=== PATIENT | female | born 1935 | race African-American/Black ===

== ENCOUNTER 2017-01-21 00:27 | Inpatient (IN) | payer MEDICARE, OTHER ==
[2017-01-21] VITALS (8 sets, daily range): BP systolic 117–178; BP diastolic 68–83
[~2017-01-21] VITALS: Ht 167.6 cm; Wt 79.8 kg
[~2017-01-21 00:27] MED LIST: AMIN30LI27 PO; ATOR20TA PO; ENAL10TA39 PO; GLUC1VIA IM; Hydralazine Hcl PO; INSU100V26 IJ; OMEP20CA10 PO; PANT40TA2 PO; WARF2TAB57 PO
[2017-01-21] MEDS ORDERED: IV NS 0.9% 500 ML BAG IV ONE (00:30)
[2017-01-21] MEDS ORDERED: LEVOFLOXACIN 750 MG /D5W 150ML 150 ML IV ONE ×2 (00:30→00:33)
--- NOTE | 2017-01-21 00:30 | NUR ---
STARTED A SALINE LOCK ON THE LAC G16, BLOOD DRAWN AND SEN TO LAB.
--- NOTE | 2017-01-21 00:32 | NUR ---
CALLED [facility] AND REQUESTED THAT THE NURSE FAX OVER THE PATIENT'S DNR PAPER WORK
[2017-01-21] MEDS ORDERED: IV NS 0.9% 500 ML IV ONE (00:33)
[2017-01-21] MEDS ORDERED: IV SET PRIMARY 1 EA INFUS.SET MC ONE (00:33)
[2017-01-21] MEDS ORDERED: IV SET PRIMARY PUMP SET 1 EA INFUS.SET MC ONE ×2 (00:33→06:14)
--- NOTE | 2017-01-21 00:35 | NUR ---
TO BED 5 A 81 YO FEMALE PT BIBA, PER EMS PT WAS SOB AND DIFFUCLTY BREATHING X 1 HOUR. UPON ARRIVAL TO ER, PATIENT WAS ON NONREBREATHER MASK AT 15LPM SATTING AT 94%, TACHYPNEIC, RONCHI ON BOTH SIDES OF LUNGS. AFIB CONTROLLED ON THE MONITOR. OBTUNDED, NONVERBAL, WITHRDRAWS FROM PAIN. KEPT HOB ELEVATED. DR ALVARADO AT BEDSIDE. RT AT BEDSIDE TO SUCTION.
--- NOTE | 2017-01-21 00:36 | NUR ---
PLACED PATIENT ON BIPAP BY RT SETTINGS 15/5 RATE 12 FIO2 40%. LONI WELL, SATTING AT 99% AT THIS TIME.
[2017-01-21 00:53] LABS: BASOPHILS % (AUTO) 0.2 % (0.0-2.0); HEMATOCRIT 43 % (33-45); LYMPHOCYTES # (AUTO) 0.5 /CMM (0.8-4.8); LYMPHOCYTES % (AUTO) 4.8 % (20.0-44.0); MEAN CORPUSCULAR HEMOGLOBIN 31 PG (26.0-33.0); MEAN CORPUSCULAR HGB CONC 32 g/dl (31.0-36.0); MEAN CORPUSCULAR VOLUME 95 fL (82-100); MONOCYTES % (AUTO) 9.5 % (2.0-12.0); NEUTROPHILS # (AUTO) 9.1 /CMM (1.8-8.9); NEUTROPHILS % (AUTO) 85.5 % (43.0-81.0); PLATELET COUNT (AUTO) 176 /CMM (150-450); RDW COEFFICIENT OF VARIATION 15.3 (11.5-15.0); RED BLOOD CELL COUNT(AUTO) 4.57 MIL/uL (4.0-5.2); WHITE BLOOD COUNT (AUTO) 10.6 K/uL (4.3-11.0)
[2017-01-21] MEDS ORDERED: RIVA10TA PO (01:00)
[2017-01-21] MEDS ORDERED: ATOR10TA PO (01:00)
[2017-01-21] MEDS ORDERED: NA P133E RC (01:00)
[2017-01-21] MEDS ORDERED: HYDR-4076 PO (01:00)
[2017-01-21] MEDS ORDERED: ACET-868 PO (01:00)
[2017-01-21] MEDS ORDERED: MAGN400O6 PO (01:00)
[2017-01-21] MEDS ORDERED: BISA-79 PR (01:00)
[2017-01-21] MEDS ORDERED: ENAL20TA70 PO (01:00)
[2017-01-21] MEDS ORDERED: POTA10TA15 PO (01:00)
[2017-01-21 01:04] LABS: CALCIUM, SERUM 8.7 mg/dL (8.5-10.1); CARBON DIOXIDE 25 mmol/L (21-32); CHLORIDE 104 mmol/L (98-107); CREATININE 1.8 mg/dL (0.6-1.3); GLUCOSE 235 mg/dL (74-106); SODIUM SERUM 141 mmol/L (136-145); UREA NITROGEN, BLOOD 21 mg/dL (7-18)
[2017-01-21 01:08] LABS: INR 1.02 (0.87-1.13); PROTHROMBIN TIME 10.9 SECS (9.5-12.7)
[2017-01-21 01:11] LABS: TROPONIN I 0.252 ng/mL (0.00-0.056)
[2017-01-21 01:17] LABS: ALANINE AMINOTRANSFERASE 24 U/L (12-78); ALBUMIN 3.7 g/dL (3.4-5.0); ALKALINE PHOSPHATASE 108 U/L (46-116); ASPARTATE AMINOTRANSFERASE 16 U/L (15-37); B-TYPE NATRIURETIC PEPTIDE 1865 PG/ML (0-125); BILIRUBIN,DIRECT 0.1 mg/dL (0.0-0.2); BILIRUBIN,TOTAL 0.3 mg/dL (0.2-1.0); TOTAL PROTEIN, SERUM 8.8 g/dL (6.4-8.2)
--- NOTE | 2017-01-21 01:20 | NUR ---
CRITICAL LACTIC 4.9
[2017-01-21 01:44] LABS: APPEARANCE,URINE SL CLOUDY (CLEAR); BILIRUBIN,URINE NEGATIVE (NEGATIVE); BLOOD, URINE NEGATIVE Ery/uL (NEGATIVE); COLOR,URINE YELLOW (YELLOW); KETONES,URINE NEGATIVE (NEGATIVE); LEUKOCYTE ESTERASE ,URINE NEGATIVE (NEGATIVE); NITRITE, URINE NEGATIVE (NEGATIVE); PROTEIN,URINE NEGATIVE (NEGATIVE); UGLUCOSE NEGATIVE (NEGATIVE); UROBILINOGEN,URINE 0.2 EU/dL (0.2)
[2017-01-21 01:57] LABS: BACTERIA,URINE None seen /HPF (None Seen); RBC,URINE NONE SEEN /HPF (0-2); SQUAMOUS EPITHELIAL CELL,UR Rare /HPF (None Seen); WBC,URINE 0-2 /HPF (0-3)
[2017-01-21 01:58] LABS: URINE AMORPHOUS URATE Moderate /HPF (None Seen)
--- NOTE | 2017-01-21 02:52 | NUR ---
director of special services at bedside to draw repeat lactic acid levels.
--- NOTE | 2017-01-21 03:22 | NUR ---
Report given to Lulu COX for SHERYL admission and jaqui.
[2017-01-21] MEDS ORDERED: ASPIRIN 300 MG/SUPP.RECT RC ONE (03:42)
[2017-01-21] MEDS ORDERED: FUROSEMIDE 40 MG/4 ML VIAL ONE (03:42)
[2017-01-21 03:51] LABS: ABG BASE EXCESS -8.5 mmol/L; ABG OXYGEN SATURATION 39.2 % (92.0-98.5); ABG PCO2 81.2 mmHg (35.0-45.0); ABG PH 7.074 (7.350-7.450); ABG PO2 27.3 mmHg (75.0-100.0); COHb 1.1 % (0.5-1.5); O2Hb 38.4 % (94.0-97.0)
[2017-01-21] MEDS ORDERED: FUROSEMIDE 40 MG/4 ML VIAL IV SCH (04:00)
[2017-01-21] MEDS ORDERED: ASPIRIN 300 MG/SUPP.RECT RC SCH (04:00)
--- NOTE | 2017-01-21 04:20 | NUR ---
MADE PANEL CALL; LEANNA BARBA TO BE PAGED.
--- NOTE | 2017-01-21 04:40 | NUR ---
SHERYL RN INITIAL NOTE RECEIVED PT FROM ER VIA GURNEY. NO ACUTE DISTRESS NOTED. PT TRANSFERRED TO BED SAFELY. ON BIPAP 22-5 R-12 FIO2 40% AND SATING WELL. PT NON VERBAL, AWAKE AND OPEN EYES. IV SITE LAC #16 PATENT AND FLUSHING WELL. LUNG AND HEART SOUNDS AUSCULTATED. SKIN ASSESSMENT DONE. TELE- A-FIB CONTROLLED 90'S. WILL CONTINUE TO MONITOR.
--- NOTE | 2017-01-21 04:42 | NUR ---
Transported patient to [facility] room 116-2 via als protocol, no incident noted. Nurse Lulu at bedside.
[2017-01-21] MEDS ORDERED: IV NS 0.9% 1,000 ML IV PRN (04:43)
[2017-01-21] MEDS ORDERED: ONDANSETRON HCL/PF 4 MG/2 ML VIAL IVP PRN (05:00)
[2017-01-21] MEDS ORDERED: IPRATROPIUM NEB FS 0.5 MG/2.5 ML AMPUL.NEB NEB PRN (05:00)
[2017-01-21] MEDS ORDERED: ZOLPIDEM TARTRATE 5 MG TABLET PO PRN (05:00)
[2017-01-21] MEDS ORDERED: MORPHINE SULFATE INJ 2 MG/ML DISP.SYRIN IV PRN (05:00)
[2017-01-21] MEDS ORDERED: MAGNESIUM HYDROXIDE 30 ML UDC PO PRN (05:00)
[2017-01-21] MEDS ORDERED: ALBUTEROL FS 2.5 MG/0.5 ML VIAL.NEB NEB PRN (05:00)
[2017-01-21] MEDS ORDERED: HYDROCODONE/APAP 5/325MG 1 EACH TABLET PO PRN (05:00)
[2017-01-21] MEDS ORDERED: NA PHOS,M-B/NA PHOS,DI-BA 1 EA ENEMA RC PRN (05:00)
[2017-01-21] MEDS ORDERED: MAG HYDROX/AL HYDROX/SIMETH 30 ML UDC PO PRN (05:00)
[2017-01-21] MEDS ORDERED: ACETAMINOPHEN 325 MG TABLET PO PRN (05:00)
[2017-01-21] MEDS ORDERED: ENOXAPARIN SODIUM 40 MG/0.4 ML DISP.SYRIN SQ SCH (05:00)
[2017-01-21] MEDS: hydrALAZINE HCL 25 MG TABLET PO SCH ×2 (05:00→08:44)
[2017-01-21] MEDS ORDERED: Z GUARD REMEDY 2 OZ OINT TP PRN (05:00)
[2017-01-21] MEDS ORDERED: BISACODYL (5 MG) 5 MG TABLET.DR PO PRN (05:00)
[2017-01-21] MEDS ORDERED: LEVOFLOXACIN 500 MG /D5W 100ML 500 MG in PREMIX 1 EA IV SCH (05:00)
[2017-01-21] MEDS ORDERED: IV NS 0.9% 1,000 ML ONE (06:14)
[2017-01-21] MEDS ORDERED: hydrALAZINE HCL 25 MG TABLET ONE (06:18)
[2017-01-21] MEDS ORDERED: ENOXAPARIN SODIUM 40 MG/0.4 ML DISP.SYRIN SQ ONE (06:18)
[2017-01-21] MEDS ORDERED: LEVOFLOXACIN 500 MG /D5W 100ML 500 MG in PREMIX 1 EA IV ONE (06:28)
[2017-01-21 07:02] LABS: BASOPHILS % (AUTO) 0.1 % (0.0-2.0); EOSINOPHILS # (AUTO) 0.1 /CMM (0.0-0.7); EOSINOPHILS % (AUTO) 0.5 % (0.0-6.0); HEMATOCRIT 42 % (33-45); HEMOGLOBIN 13.8 g/dL (11.5-14.8); LYMPHOCYTES # (AUTO) 0.5 /CMM (0.8-4.8); LYMPHOCYTES % (AUTO) 4.5 % (20.0-44.0); MEAN CORPUSCULAR HEMOGLOBIN 31 PG (26.0-33.0); MEAN CORPUSCULAR HGB CONC 33 g/dl (31.0-36.0); MEAN CORPUSCULAR VOLUME 95 fL (82-100); MONOCYTES # (AUTO) 0.2 /CMM (0.1-1.30); MONOCYTES % (AUTO) 2.2 % (2.0-12.0); NEUTROPHILS % (AUTO) 92.7 % (43.0-81.0); PLATELET COUNT (AUTO) 150 /CMM (150-450); RDW COEFFICIENT OF VARIATION 14.9 (11.5-15.0); WHITE BLOOD COUNT (AUTO) 10.8 K/uL (4.3-11.0)
--- NOTE | 2017-01-21 07:37 | NUR ---
SHERYL RN CLOSING NOTE PT REMAINED STABLE DURING SHIFT. NO ACUTE DISTRESS NOTED. SATING WELL. BIPAP SETTINGS WELL TOLERATED. PT HAS LEFT SOFT WRIST RESTRAINT. CIRCULATION CHECKED AND NO DISCOLORATION NOTED. IV SITE INTACT. IV FLUIDS INITIATED AND TOLERATING WELL. BED IN LOWEST POSITION. DIETARY EVALUATION ORDERED. ALL SAFETY MEASURES IN PLACE. WILL ENDORSE TO NEXT SHIFT FOR KATIE.
[2017-01-21] MEDS: ALBUTEROL FS 2.5 MG/0.5 ML VIAL.NEB NEB SCH ×3 (07:55→20:22)
[2017-01-21] MEDS: IPRATROPIUM NEB FS 0.5 MG/2.5 ML AMPUL.NEB NEB SCH ×3 (07:55→20:22)
--- NOTE | 2017-01-21 08:00 | NUR ---
viticulture teacher pt in bed on bipap settings noted, awake does not follow right sided contraction, pt sat 10% vs stable, pt unable to couch provided oropharyngeal suctioning, pt comfortable in bed fall precautions taken turn and reposition in bed, release restraints provided prom checked for circulation, will continue to monitor.
[2017-01-21] MEDS: RIVAROXABAN 10 MG TABLET PO SCH (08:44)
[2017-01-21 08:53] LABS: CALCIUM, SERUM 8.5 mg/dL (8.5-10.1); CARBON DIOXIDE 22 mmol/L (21-32); CHLORIDE 106 mmol/L (98-107); CREATININE 1.7 mg/dL (0.6-1.3); GLUCOSE 198 mg/dL (74-106); POTASSIUM 4.4 mmol/L (3.5-5.1); SODIUM SERUM 141 mmol/L (136-145); UREA NITROGEN, BLOOD 26 mg/dL (7-18)
[2017-01-21] MEDS ORDERED: POTASSIUM CHLORIDE 10 MEQ TABLET.SA PO SCH (09:00)
[2017-01-21] MEDS ORDERED: ENALAPRIL MALEATE (10 MG) 10 MG TABLET PO SCH (09:30)
[2017-01-21] MEDS: methylPREDNISolone SOD SUCC 125 MG/2ML VIAL IV SCH ×2 (10:41→16:57)
[2017-01-21] MEDS: PANTOPRAZOLE 40 MG VIAL IV SCH (10:41)
[2017-01-21] MEDS: IV NS 0.9% 1,000 ML IV PRN ×2 (15:19→22:19)
[2017-01-21] MEDS ORDERED: ATORVASTATIN 10 MG TABLET PO SCH (18:00)
--- NOTE | 2017-01-21 19:20 | NUR ---
RN INITIAL NOTES RECEIVED PATIENT ON BIPAP, TOLERATING SETTINGS WELL WITH 100% SATURATION. PATIENT IS AWAKE, NONVERBAL, POOR EYE TRACKING NOTED. CONTROLLED AFIB AT 82. PATIENT WITH L AC G16, FLUSHED AND PATENT, INTACT, IVF OF NS AT 250CC/HR INFUSING. F/C INTACT AND DRAINING WELL WITH CLEAR YELLOW URINE. L WRIST SOFT RESTRAINT IN PLACE, NOTED PATIENT WITH GOOD ARM STRENGTH AND TENDS TO LEAN SELF ON LEFT SIDE. REPOSITIONED PATIENT FOR SAFETY AND COMFORT. BED ALARM IN PLACE. NEEDS ANTICIPATED AND MET. WILL CLOSELY MONITOR.
--- NOTE | 2017-01-21 22:30 | NUR ---
RN NOTES PATIENT PROVIDED WITH PM CARE. REPOSITIONED FOR SAFETY AND COMFORT. L WRIST SOFT RESTRAINTS IN PLACE, INTERMITTENTLY RELEASED AND CHECKED AND VERIFIED SKIN INTEGRITY AND CIRCULATION. NEEDS ANTICIPATED AND MET. COMFORT ENSURED.
[2017-01-22] VITALS: BP 152/84
[2017-01-22] MEDS: ALBUTEROL FS 2.5 MG/0.5 ML VIAL.NEB NEB SCH ×4 (01:48→19:57)
[2017-01-22] MEDS: IPRATROPIUM NEB FS 0.5 MG/2.5 ML AMPUL.NEB NEB SCH ×4 (01:49→19:57)
[2017-01-22 04:00] VITALS: BP 121/57
--- NOTE | 2017-01-22 04:48 | NUR ---
RN NOTES PATIENT SLEEPING COMFORTABLY IN BED, NO DISTRESS. TOLERATING BIPAP SETTINGS. 100% O2 SATURATION. AIRWAY SUCTIONED NEEDED, COORDINATED WITH RT FOR ASSISTANCE. AM CARE RENDERED. PATIENT KEPT CLEAN AND DRY. GOOD PERICARE RENDERED. TURNED AND REPOSITIONED. L WRIST RESTRAINTS IN PLACE, CIRCULATION AND SKIN INTEGRITY ENSURED.
[2017-01-22] MEDS ORDERED: IV SET PRIMARY PUMP SET 1 EA INFUS.SET MC ONE (05:26)
[2017-01-22] MEDS: LEVOFLOXACIN 250 MG /D5W 50 ML 250 MG in PREMIX 1 EA IV SCH (05:38)
--- NOTE | 2017-01-22 06:39 | NUR ---
RN CLOSING NOTES PATIENT WITH NO ACUTE CHANGE IN CONDITION OBSERVED OVERNIGHT. REMAINS ON BIPAP, TOLERATING WELL. AIRWAY SUCTIONED. COMPLETED IVF CHALLENGE ORDERED. L AC G16 REMAINS INTACT AND PATENT. NEEDS ANTICIPATED AND MET. SAFETY AND COMFORT ENSURED. BED IN LOW AND LOCKED POSITION. L SOFT WRIST RESTRAINTS IN PLACE, CIRCULATION AND SKIN INTEGRITY ENSURED. WILL ENDORSE ACCORDINGLY FOR CONTINUITY OF CARE.
--- NOTE | 2017-01-22 07:42 | NUR ---
PT ABLE TO GRAB WITH THE LEFT ARM AND PULL OFF THE BIPAP. DEEP SUCTIONED THE PATIENT WITH RT AND PLACED ON NC. SHE SATS AT 100%.
[2017-01-22 07:45] LABS: ALANINE AMINOTRANSFERASE 40 U/L (12-78); ALBUMIN 2.9 g/dL (3.4-5.0); ALKALINE PHOSPHATASE 81 U/L (46-116); ASPARTATE AMINOTRANSFERASE 70 U/L (15-37); BILIRUBIN,TOTAL 0.3 mg/dL (0.2-1.0); CARBON DIOXIDE 23 mmol/L (21-32); CHLORIDE 112 mmol/L (98-107); CREATININE 1.2 mg/dL (0.6-1.3); GLUCOSE 165 mg/dL (74-106); MAGNESIUM 1.8 mg/dL (1.8-2.4); PHOSPHORUS 2.5 mg/dL (2.5-4.9); POTASSIUM 4.9 mmol/L (3.5-5.1); SODIUM SERUM 144 mmol/L (136-145); TOTAL PROTEIN, SERUM 7.5 g/dL (6.4-8.2); UREA NITROGEN, BLOOD 27 mg/dL (7-18)
[2017-01-22 07:49] LABS: TROPONIN I 0.342 ng/mL (0.00-0.056)
[2017-01-22 08:00] VITALS: BP 167/82
[2017-01-22 08:01] LABS: BASOPHILS % (AUTO) 0.2 % (0.0-2.0); EOSINOPHILS % (AUTO) 0.1 % (0.0-6.0); HEMATOCRIT 35 % (33-45); HEMOGLOBIN 11.5 g/dL (11.5-14.8); LYMPHOCYTES # (AUTO) 0.7 /CMM (0.8-4.8); LYMPHOCYTES % (AUTO) 8.1 % (20.0-44.0); MEAN CORPUSCULAR HEMOGLOBIN 31 PG (26.0-33.0); MEAN CORPUSCULAR HGB CONC 33 g/dl (31.0-36.0); MEAN CORPUSCULAR VOLUME 93 fL (82-100); MONOCYTES # (AUTO) 0.4 /CMM (0.1-1.30); MONOCYTES % (AUTO) 4.7 % (2.0-12.0); NEUTROPHILS # (AUTO) 7.5 /CMM (1.8-8.9); NEUTROPHILS % (AUTO) 86.9 % (43.0-81.0); PLATELET COUNT (AUTO) 125 /CMM (150-450); RDW COEFFICIENT OF VARIATION 14.2 (11.5-15.0); RED BLOOD CELL COUNT(AUTO) 3.71 MIL/uL (4.0-5.2); WHITE BLOOD COUNT (AUTO) 8.6 K/uL (4.3-11.0)
[2017-01-22] MEDS: RIVAROXABAN 10 MG TABLET PO SCH (09:00)
[2017-01-22] MEDS: PANTOPRAZOLE 40 MG VIAL IV SCH (09:07)
[2017-01-22] MEDS: methylPREDNISolone SOD SUCC 125 MG/2ML VIAL IV SCH ×2 (09:07→16:01)
[2017-01-22 10:56] LABS: ABG BASE EXCESS -4.6 mmol/L; ABG OXYGEN SATURATION 97.7 % (92.0-98.5); ABG PCO2 43.2 mmHg (35.0-45.0); ABG PH 7.314 (7.350-7.450); AaDO2 93.6 mmHg; COHb 0.7 % (0.5-1.5); SITE, ABG Right Radial; VENT MODE, BG N/C
[2017-01-22 12:00] VITALS: BP 153/72
--- NOTE | 2017-01-22 13:41 | NUR ---
DR. ROCA NOTIFIED ABOUT LABS (ORDERED BY HER) LACTIC ACID AT 2.4 TODAY (TREND DOWN FROM 4.2 YESTERDAY). ACKNOWLEDGES NO ORDERS FOR IVF.
[2017-01-22 15:01] LABS: BILIRUBIN,DIRECT 0.1 mg/dL (0.0-0.2)
[2017-01-22 16:00] VITALS: BP_SYST 141; BP_SYST 99; BP_DIAS 44; BP_DIAS 78
--- NOTE | 2017-01-22 19:30 | NUR ---
RN NOTES RECEIVED PT RESTING ON BED WITH O2 2LPM VIA NC NO ACUTE RESP DISTRESS BREATHING EVEN AND UNLABORED SATING 99% ALERT BUT NON VERBAL A- FIB HR 89 ON TELE MONITOR. IV SITE ON LAC G 20 SL INTACT AND PATENT. LEFT MITTENS ON DUE TO EPISODE OF PULLING OUT LIFE SUSTAINING DEVICE. F/C DRAINED WITH ROSA COLOR URINE,VIA GRAVITY. OFFLOADED EXT WITH PILLOWS T/R PT COMFORTABLE.. KEPT PT CLEAN AND COMFORTABLE IN BED. WILL CONTINUE TO MONITOR.
[2017-01-22 20:00] VITALS: BP 107/74
[2017-01-23] VITALS (8 sets, daily range): BP systolic 101–159; BP diastolic 59–104
[2017-01-23] MEDS: ALBUTEROL FS 2.5 MG/0.5 ML VIAL.NEB NEB SCH ×5 (01:46→19:37)
[2017-01-23] MEDS: IPRATROPIUM NEB FS 0.5 MG/2.5 ML AMPUL.NEB NEB SCH ×4 (01:46→19:37)
[2017-01-23] MEDS: LEVOFLOXACIN 250 MG /D5W 50 ML 250 MG in PREMIX 1 EA IV SCH (05:51)
[2017-01-23 06:47] LABS: BASOPHILS % (AUTO) 0.3 % (0.0-2.0); HEMATOCRIT 36 % (33-45); HEMOGLOBIN 11.9 g/dL (11.5-14.8); LYMPHOCYTES # (AUTO) 0.6 /CMM (0.8-4.8); LYMPHOCYTES % (AUTO) 6.5 % (20.0-44.0); MEAN CORPUSCULAR HEMOGLOBIN 31 PG (26.0-33.0); MEAN CORPUSCULAR HGB CONC 33 g/dl (31.0-36.0); MEAN CORPUSCULAR VOLUME 93 fL (82-100); MONOCYTES # (AUTO) 0.7 /CMM (0.1-1.30); MONOCYTES % (AUTO) 7.4 % (2.0-12.0); NEUTROPHILS # (AUTO) 8.5 /CMM (1.8-8.9); NEUTROPHILS % (AUTO) 85.8 % (43.0-81.0); PLATELET COUNT (AUTO) 123 /CMM (150-450); RED BLOOD CELL COUNT(AUTO) 3.84 MIL/uL (4.0-5.2); WHITE BLOOD COUNT (AUTO) 9.9 K/uL (4.3-11.0)
--- NOTE | 2017-01-23 06:53 | NUR ---
RN NOTES PT ASLEEP WELL ON BED. NO SIGNIFICANT KATIE SHOWS THROUGHOUT THE SHIFT. AFEBRILE. VS MAINTAINED WNL. TOLERATED O2 2LPM VIA NC SATING 99-100%.IV ATB TOLERATED WELL NO ASE NOTED. KEPT PT CLEAN AND DRY. SKIN CARE PROVIDED. WILL ENDORSED CONTINUITY OF CARE TO AM NURSE.
[2017-01-23 07:00] LABS: CALCIUM, SERUM 8.5 mg/dL (8.5-10.1); CARBON DIOXIDE 24 mmol/L (21-32); CHLORIDE 113 mmol/L (98-107); GLUCOSE 177 mg/dL (74-106); MAGNESIUM 2.2 mg/dL (1.8-2.4); PHOSPHORUS 2.5 mg/dL (2.5-4.9); POTASSIUM 4.5 mmol/L (3.5-5.1); SODIUM SERUM 146 mmol/L (136-145); UREA NITROGEN, BLOOD 26 mg/dL (7-18)
--- NOTE | 2017-01-23 07:30 | NUR ---
RN NOTES RECEIVED PT IN BED, ASLEEP AT THIS TIME. ON O2@4LPM VIA NC, NO ACUTE DISTRESS NOTED. AFIB CONTROLLED ON TELE MONITOR HR 64 THIS TIME. NOTED RUE CONTRACTED, LUE WITH SOFT WRIST RESTRAINT PER REPORT PT WITH EPISODES OF PULLING O2 CANNULA. RELEASED AND CHECKED FOR CIRCULATION. UNABLE TO FOLLOW SAFETY DIRECTION. L HAND 20G SL, FLUSHED WITH NS PATENT. FC PATENT, INTACT CONNECTED TO CLOSED SYSTEM. ON NPO, FOR SWALLOW EVAL TODAY. SAFETY MAINTAINED. NEEDS ATTENDED, CALL LIGHT WITHIN REACH, WILL CONT TO MONITOR.
[2017-01-23] MEDS: PANTOPRAZOLE 40 MG VIAL IV SCH (08:49)
[2017-01-23] MEDS: methylPREDNISolone SOD SUCC 125 MG/2ML VIAL IV SCH ×2 (08:49→16:10)
--- NOTE | 2017-01-23 09:33 | NUR ---
RN NOTES PT WAS SEEN BY SPEECH THERAPIST, PASSED SWALLOW EVAL. ST RECOMMENDED PUREE DIET WITH NECTAR THICK LIQUIDS. PER ST, SHE INFORMED DR NORRIS AT BEDSIDE
[2017-01-23] MEDS: RIVAROXABAN 10 MG TABLET PO SCH (10:45)
[2017-01-23 13:11] LABS: *SPE A/G RATIO 0.9 (0.7-1.7); *SPE ALBUMIN 3.8 g/dL (2.9-4.4); *SPE ALPHA-1-GLOBULIN 0.3 g/dL (0.0-0.4); *SPE ALPHA-2-GLOBULIN 0.7 g/dL (0.4-1.0); *SPE BETA GLOBULIN 1.1 g/dL (0.7-1.3); *SPE GLOBULIN, TOTAL 4.2 g/dL (2.2-3.9); *SPE M-SPIKE Not Observed g/dL (Not Observed); *SPEGAMMA GLOBULIN 2.1 g/dL (0.4-1.8)
--- NOTE | 2017-01-23 13:25 | NUR ---
WOUND CARE CONSULT: PT PRESENTS WITH INTACT SKIN WHICH IS SLIGHTLY DRY. RECOMMEND MOISTURIZE DRY SKIN. ALL SKIN PROTECTION MEASURES IN PLACE AND DISCUSSED WITH NURSING STAFF. PT ON COMFORT GEL MATTRESS. TETO SCORE CURRENTLY 14. WILL SEE PRN. CAMPBELL IN AGREEMENT WITH PLAN OF CARE.
[2017-01-23] MEDS: CEFTRIAXONE 1 G in IV D5W 50 ML IV SCH (15:41)
--- NOTE | 2017-01-23 19:30 | NUR ---
RN NOTES PT RESTING ON BED WITH O2 2LPM VIA NC NO ACUTE RESP DISTRESS BREATHING EVEN AND UNLABORED SATING 100% ALERT BUT NON VERBAL, RESTLESSNESS NOTED WHILE TOUCHING THE PATIENT A- FIB HR 109 ON TELE MONITOR. IV SITE ON LAC G 20 SL INTACT AND PATENT. LEFT WRIST RESTRAINT REMOVED AND STARTED TO REMOVE O2 VIA NC. PLACED BACK AGAIN AND [place] CIRCULATION. F/C DRAINED WITH YELLOW COLOR SEDIMENTED URINE,VIA GRAVITY. OFFLOADED EXT WITH PILLOWS T/R PT COMFORTABLE. REPOSITIONED. KEPT PT CLEAN AND COMFORTABLE IN BED. WILL MONITOR CLOSELY.
[2017-01-24] VITALS (7 sets, daily range): BP systolic 94–185; BP diastolic 60–119
[2017-01-24] MEDS: IPRATROPIUM NEB FS 0.5 MG/2.5 ML AMPUL.NEB NEB SCH (01:26)
[2017-01-24] MEDS: ALBUTEROL FS 2.5 MG/0.5 ML VIAL.NEB NEB SCH (01:26)
--- NOTE | 2017-01-24 08:00 | NUR ---
RN received pt in bed awake does not follow, pt does not track with eyes, r sided upper extremity contracted, left hand on restraint released checked circulation and skin breakdown, provided rom, pt still interfering with medical equipment and not safe to release the restraints, hr 90s on tele sbp slightly elevated will continue to monitor, iv access patent lawson present with discharge, turn and reposition, pt likes to cross leggs attempted to offload lower extremities pt kicks pillow out will try to offload as much as possible, call light w;/ in reach fall precautions taken sru x3.
[2017-01-24] MEDS: methylPREDNISolone SOD SUCC 125 MG/2ML VIAL IV SCH ×2 (09:22→16:32)
[2017-01-24] MEDS: PANTOPRAZOLE 40 MG VIAL IV SCH (09:22)
[2017-01-24] MEDS: RIVAROXABAN 10 MG TABLET PO SCH (09:30)
[2017-01-24 11:57] LABS: ABG OXYGEN SATURATION 97.1 % (92.0-98.5); ABG PCO2 39.1 mmHg (35.0-45.0); ABG PH 7.399 (7.350-7.450); ABG PO2 95.3 mmHg (75.0-100.0); AaDO2 58.2 mmHg; COHb 0.9 % (0.5-1.5); MetHb 0.7 % (0.0-1.5); O2Hb 95.5 % (94.0-97.0); SITE, ABG Right Radial; VENT MODE, BG 2L NASAL CANNULA
[2017-01-24] MEDS ORDERED: NITROGLYCERIN PACKET 1 GM PACKET ONE (12:24)
[2017-01-24] MEDS: NITROGLYCERIN 30 GM TUBE TP SCH ×2 (12:29→16:28)
[2017-01-24] MEDS: CEFTRIAXONE 1 G in IV D5W 50 ML IV SCH (15:16)
--- NOTE | 2017-01-24 19:30 | NUR ---
MEDICAL EQUIPMENT REPAIR TECHNICIAN INITIAL NOTE RECEIVED REPORT FROM YOANA RN. PT IN BED. AWAKE, NOT ORIENTED. NON VERBAL. LUNG SOUNDS CLEAR. BOWEL SOUNDS PRESENT. PULSES PRESENT. IV PATENT AND INTACT. WILL CONTINUE TO MONITOR.
--- NOTE | 2017-01-24 21:30 | NUR ---
RN INITIAL NOTE RECEIVED PT IN NO ACUTE DISTRESS IN BED. PT IS ALERT BUT CONFUSED. PT IS NON VERBAL. PT IS ON O2 VIA NC @ 2LPM AND TOLERATING WELL WITH O2 SAT @ 98%. PT IS ON TELE WITH AFIB ON THE MONITOR. PT HAS F/C THAT IS CLEAN DRY INTACT AND PATENT WITH ROSA COLOR URINE DRAINING. PT HAS FLEXISEAL THAT IS CLEAN DRY AND INTACT. FLEXISEAL IS IN PLACE TO RELIEVE GAS. PT HAS LAC 20G THAT IS CLEAN DRY INTACT AND PATENT WITH SALINE LOCK. CALL LIGHT WITHIN REACH AND ALL SAFETY MEASURES ENSURED AND CARRIED OUT. WILL CONTINUE TO MONITOR PT.
--- NOTE | 2017-01-24 21:48 | NUR ---
RN NOTE RECEIVED PT FROM SHERYL KENNY KELLEY FOR CONTINUITY OF CARE.
[2017-01-25] VITALS: BP 168/92
[2017-01-25 04:00] VITALS: BP 159/92
--- NOTE | 2017-01-25 06:38 | NUR ---
RN CLOSING NOTE PT REMAINS IN NO ACUTE DISTRESS IN BED. PT DID NOT HAVE ANY SIGNIFICANT CHANGE IN CONDITION DURING SHIFT. ALL NEEDS MET ALL ORDERS CARRIED OUT. WILL ENDORSE TO AM RN FOR CONTINUITY OF CARE.
[2017-01-25 07:03] LABS: BASOPHILS # (AUTO) 0.1 /CMM (0.0-0.2); BASOPHILS % (AUTO) 0.5 % (0.0-2.0); HEMATOCRIT 41 % (33-45); HEMOGLOBIN 13.5 g/dL (11.5-14.8); LYMPHOCYTES # (AUTO) 1.1 /CMM (0.8-4.8); LYMPHOCYTES % (AUTO) 7.7 % (20.0-44.0); MEAN CORPUSCULAR HEMOGLOBIN 31 PG (26.0-33.0); MEAN CORPUSCULAR HGB CONC 33 g/dl (31.0-36.0); MEAN CORPUSCULAR VOLUME 92 fL (82-100); MONOCYTES # (AUTO) 0.7 /CMM (0.1-1.30); MONOCYTES % (AUTO) 4.8 % (2.0-12.0); NEUTROPHILS # (AUTO) 12.1 /CMM (1.8-8.9); PLATELET COUNT (AUTO) 130 /CMM (150-450); RDW COEFFICIENT OF VARIATION 14.9 (11.5-15.0); RED BLOOD CELL COUNT(AUTO) 4.42 MIL/uL (4.0-5.2); WHITE BLOOD COUNT (AUTO) 13.9 K/uL (4.3-11.0)
[2017-01-25 07:11] LABS: CALCIUM, SERUM 8.6 mg/dL (8.5-10.1); CARBON DIOXIDE 28 mmol/L (21-32); CHLORIDE 112 mmol/L (98-107); CREATININE 0.9 mg/dL (0.6-1.3); GLUCOSE 153 mg/dL (74-106); POTASSIUM 4.7 mmol/L (3.5-5.1); SODIUM SERUM 145 mmol/L (136-145); UREA NITROGEN, BLOOD 24 mg/dL (7-18)
--- NOTE | 2017-01-25 07:15 | NUR ---
RN INITIAL NOTES RECEIVED PT IN BED, HOB ELEVATED. NO RESPIRATORY DISTRESS NOTED. NO SOB NOTED. NO SIGNS OF PAIN NOTED. ON 02 AT 2LPM VIA NC. LAC #[address] FLUSHED WITH NS. FC IN PLACE. FLEXISEAL IN PLACE. WILL MONITOR FOR OUTPUT. BLE ELEVATED. PT COMFORTABLE. WILL MONITOR.
[2017-01-25 08:00] VITALS: BP 181/94
[2017-01-25] MEDS: methylPREDNISolone SOD SUCC 125 MG/2ML VIAL IV SCH ×2 (08:05→16:20)
[2017-01-25] MEDS: PANTOPRAZOLE 40 MG VIAL IV SCH (08:05)
[2017-01-25] MEDS: RIVAROXABAN 10 MG TABLET PO SCH (08:10)
[2017-01-25] MEDS: NITROGLYCERIN 30 GM TUBE TP SCH ×2 (10:00→16:22)
[2017-01-25 12:00] VITALS: BP 169/86
--- NOTE | 2017-01-25 14:05 | NUR ---
RN NOTES SEEN AND EXAMINED BY VITO MOE NP. AWARE OF CURRENT LAB VALUES AND KUB RESULT. RECTAL TUBE IN PLACE. NO SIGNIFICANT CHANGE NOTED. NO ORDER MADE.
[2017-01-25 16:00] VITALS: BP 173/75
--- NOTE | 2017-01-25 18:37 | NUR ---
RN CLOSING NOTES PT REMAINS STABLE. NO SIGNIFICANT CHANGE NOTED. NO RESPIRATORY DISTRESS NOTED. NO SIGNS OF PAIN NOTED. IV LINE IN PLACE. KEPT CLEAN AND DRY. REPOSITIONED Q2. KEPT COMFORTABLE. ALL NEEDS ANTICIPATED AND MET. WILL ENDORSE FOR CONTINUATION OF CARE.
--- NOTE | 2017-01-25 19:20 | NUR ---
RN OPEN NOTES RECEIVED PATIENT AWAKE IN BED. A/O X1, NON VERBAL. NO SIGNS OF DISTRESS OR DISCOMFORT. BREATHING EVEN AND UNLABORED. ON 2LPM O2 VIA NC. IV ACCESS IN LAC PATENT AND INTACT, NO SIGNS OF REDNESS OR INFILTRATION. HAS F/C INTACT AND PATENT WITH CLEAR YELLOW FLUID NOTED. HAS FLEXISEAL IN PLACE. ON L WRIST SOFT RESTRAINT. BED IN LOW LOCKED POSITION WITH SIDE RAILS X3. CALL LIGHT WITHIN REACH. WILL CONTINUE TO MONITOR.
[2017-01-25 20:00] VITALS: BP_SYST 143; BP_SYST 160; BP_DIAS 73; BP_DIAS 93
[2017-01-26] VITALS (7 sets, daily range): BP systolic 142–194; BP diastolic 72–116
--- NOTE | 2017-01-26 07:06 | NUR ---
RN CLOSING NOTES PATIENT RESTING IN BED. A/O X1, NON VERBAL. NO SIGNS OF DISTRESS OR DISCOMFORT. BREATHING EVEN AND UNLABORED. ON 2LPM O2 VIA NC. IV ACCESS IN LAC PATENT AND INTACT, NO SIGNS OF REDNESS OR INFILTRATION. HAS F/C INTACT AND PATENT WITH CLEAR YELLOW FLUID NOTED. HAS FLEXISEAL IN PLACE. ON L WRIST SOFT RESTRAINT. NO SIGNIFICANT CHANGES THROUGH THE NIGHT. PATIENT KEPT CLEAN DRY AND COMFORTABLE. REPOSITIONED Q2H. BED IN LOW LOCKED POSITION WITH SIDE RAILS X3. CALL LIGHT WITHIN REACH. WILL ENDORSE TO AM SHIFT FOR KATIE.
[2017-01-26] MEDS: PANTOPRAZOLE 40 MG VIAL IV SCH (10:17)
[2017-01-26] MEDS: RIVAROXABAN 10 MG TABLET PO SCH (10:18)
[2017-01-26] MEDS: methylPREDNISolone SOD SUCC 125 MG/2ML VIAL IV SCH ×2 (10:19→17:02)
[2017-01-26] MEDS: NITROGLYCERIN 30 GM TUBE TP SCH ×2 (10:31→17:08)
--- NOTE | 2017-01-26 18:44 | NUR ---
patient scheduled [facility] but b/p too high 200/110 informed charge hedy she called md waiting for response
[2017-01-26] MEDS ORDERED: CLONIDINE HCL 0.1 MG TABLET PO ONE (19:16)
--- NOTE | 2017-01-26 21:29 | NUR ---
Patient iv was d/c'd pt had a discharge order but blood pressure was elevated and iv was restarted 20 gauge LFA pt tolerated well . Pt has oxygen 2L nasal canula . Elise is intact draining clear yellow urine. Pt has a oxygen 2 L nasal canula. Addendum: 01/26/17 at [id number] by ALEX MENDES RN Typed oxygen twice disregard the last sentence.
--- NOTE | 2017-01-26 23:50 | NUR ---
RN NOTES RECEIVED ENDORSEMENT FROM KENNY JOHNSON. RECEIVED PATIENT IN BED, SLEEPING COMFORTABLY. PATIENT WITH NO DISTRESS AND DISCOMFORT. ON 2LPM OF O2 VIA NC, RESPIRATION IS EVEN AND UNLABORED WITH NO DISTRESS. WITH LEFT FOREARM G20, FLUSHED AND PATENT, ON SK. WITH F/C, INTACT AND DRAINING WITH YELLOW URINE. FLEXISEAL INTACT, NO KINKS DRAINING WELL. L WRIST SOFT RESTRAINTS IN PLACE, SKIN INTEGRITY CHECKED, ADEQUATE CIRCULATION ENSURED. PATIENT'S SAFETY AND COMFORT ENSURED. BED IN LOW AND LOCKED POSITION. WILL CONTINUE TO MONITOR.
[2017-01-27 04:00] VITALS: BP 154/86
--- NOTE | 2017-01-27 06:49 | NUR ---
RN CLOSING NOTES PATIENT WITH NO CHANGE IN CONDITION OBSERVED OVERNIGHT. PATIENT PROVIDED WITH CONSTANT REORIENTATION AND REDIRECTION NEEDED. SAFETY AND COMFORT ENSURED. L SOFT WRIST RESTRAINT IN PLACE, CIRCULATION AND SKIN INTEGRITY ENSURED. RELEASED RESTRAINTS INTERMITTENTLY. F/C INTACT AND DRAINING WELL. FLEXISEAL INTACT, DRAINING WELL, NO KINKS. NEEDS ANTICIPATED AND MET. BED IN LOW AND LOCKED POSITION. BED ALARM IN PLACE. CALL LIGHT IN REACH. WILL ENDORSE ACCORDINGLY FOR CONTINUITY OF CARE.
--- NOTE | 2017-01-27 07:10 | NUR ---
RN INITIAL NOTE RECEIVED REPORT FROM MARKEL RUBIO NURSE FOR KATIE. PT A/O X1 NON VERBAL. NC 2L . PT MS. FLEXISEAL AND FC INTACT. IV LFA #20G FLUSHED PATENT AND INTACT. L WRIST SOFT RESTRAINT CK AND INTACT. WILL CONTINUE TO MONITOR. ALL SAFETY MEASURES IN PLACE.
[2017-01-27 08:00] VITALS: BP 211/116
--- NOTE | 2017-01-27 08:25 | NUR ---
RN NOTE CALL VITO REGARDING PT BP 211/116. ORDERED AMLODIPINE 10MG PO DAILY AND CATAPRES 0.1 MG PO FOR BP GREATER THAN 180 Q 6HR.
[2017-01-27] MEDS ORDERED: CLONIDINE HCL 0.1 MG TABLET PO PRN (08:30)
[2017-01-27] MEDS: methylPREDNISolone SOD SUCC 125 MG/2ML VIAL IV SCH (08:41)
[2017-01-27] MEDS: NITROGLYCERIN 30 GM TUBE TP SCH (08:42)
[2017-01-27] MEDS: RIVAROXABAN 10 MG TABLET PO SCH (08:47)
[2017-01-27] MEDS ORDERED: AMLODIPINE BESYLATE 10 MG TABLET PO SCH (09:00)
[2017-01-27] MEDS: PANTOPRAZOLE 40 MG VIAL IV SCH (09:15)
--- NOTE | 2017-01-27 09:20 | NUR ---
RN NOTE BP RETAKEN 149/78. WILL CONTINUE TO MONITOR PT.
[2017-01-27 09:37] VITALS: BP 149/78
[2017-01-27] MEDS ORDERED: CLONIDINE HCL 0.3 MG/24H PTWK 1 EA PATCH TD SCH (10:00)
--- NOTE | 2017-01-27 10:30 | NUR ---
RN NOTE CALLED PHARMACY REGARDING CATAPRES PATCH AWAITING REFILL IN [facility].
[2017-01-27 12:00] VITALS: BP 150/56
[2017-01-27 16:00] VITALS: BP 139/52
--- NOTE | 2017-01-27 16:22 | NUR ---
APARTMENT LOCATOR NOTE PT DISCHARGED TO [facility] GAVE REPORT TO ARIANNA COX. PT STABLE V/S STABLE.REPORT AND DC INSTRUCTIONS GIVEN TO EMT. TRANSFERRED VIA AMBULANCE. REMOVED ID BAND AND IV. NO BELONGINGS WITH PT ON ADMISSION. PT CLEAN WARM AND DRY DC DONAHUE AND PT LEFT WITH FLEXISEAL PER MD ORDER. ALL ORDERS CARRIED OUT.
--- NOTE | 2017-01-27 16:22 | NUR ---
RN NOTE PER ORDER FROM VITO DONAHUE.
== END 2017-01-27 16:33 | DRG 280 ==
LOC: ER 00:30 → TELE-TD 03:13 → TELE1 01-23 10:46 → MEDSG1 01-26 13:46
PROVIDERS: ADMIT Family Medicine; ATTEND Internal Medicine
PROC: 5A09457 Assistance with Respiratory Ventilation, 24-96 Consecutive Hours, Continuous Positive Airway Pressure (ICD-10-PCS; principal; 2017-01-21)
DX: I21.4 Non-ST elevation (NSTEMI) myocardial infarction (principal); J96.01 Acute respiratory failure with hypoxia; I50.33 Acute on chronic diastolic (congestive) heart failure; R53.2 Functional quadriplegia; G93.40 Encephalopathy, unspecified; N17.0 Acute kidney failure with tubular necrosis; I13.0 Hypertensive heart and chronic kidney disease with heart failure and stage 1 through stage 4 chronic kidney disease, or unspecified chronic kidney disease; D68.59 Other primary thrombophilia; E87.2 Acidosis; K56.7 Ileus, unspecified; I69.351 Hemiplegia and hemiparesis following cerebral infarction affecting right dominant side; N39.0 Urinary tract infection, site not specified; K86.1 Other chronic pancreatitis; N18.9 Chronic kidney disease, unspecified; I48.2 Chronic atrial fibrillation; E11.22 Type 2 diabetes mellitus with diabetic chronic kidney disease; I27.2 Other secondary pulmonary hypertension; Z66 Do not resuscitate; I25.2 Old myocardial infarction; E78.5 Hyperlipidemia, unspecified; F03.90 Unspecified dementia, unspecified severity, without behavioral disturbance, psychotic disturbance, mood disturbance, and anxiety; K21.9 Gastro-esophageal reflux disease without esophagitis; Z79.01 Long term (current) use of anticoagulants; Z79.899 Other long term (current) drug therapy; I34.0 Nonrheumatic mitral (valve) insufficiency; B96.89 Other specified bacterial agents as the cause of diseases classified elsewhere; T38.0X5A Adverse effect of glucocorticoids and synthetic analogues, initial encounter; Y92.129 Unspecified place in nursing home as the place of occurrence of the external cause; D72.829 Elevated white blood cell count, unspecified
CPT/HCPCS: 31720; 36415; 36600; 71010-TC; 74000-TC; 76770-TC; 80048-TC; 80053-TC; 80076-TC; 81000-TC; 82248-TC; 82803-TC; 83605-TC; 83735-TC; 83880; 84100-TC; 84155; 84165; 84484-TC; 85025-TC; 85730-TC; 87040-TC; 87081-TC; 87086-TC; 87186-TC; 87400; 92526; 92611-TC; 93307-TC; 94799-TC; A4216; A4606; C9113; J0696; J1650; J1940; J1956; J2270; J2930; J7030; J7040; J7060; Z7610

== ENCOUNTER 2022-11-02 08:43 | Emergency (ER) | payer MEDICARE, OTHER ==
[~2022-11-02] VITALS: Ht 165.1 cm; Wt 84.4 kg
[~2022-11-02 08:43] MED LIST changes: +ACET-868 PO; -AMIN30LI27 PO; +ATOR10TA PO; -ATOR20TA PO; +BISA-79 PR; -ENAL10TA39 PO; +ENAL20TA70 PO; -GLUC1VIA IM; +HYDR-4076 PO; -Hydralazine Hcl PO; -INSU100V26 IJ; +MAGN400O6 PO; +NA P133E RC; -OMEP20CA10 PO; -PANT40TA2 PO; +RIVA10TA PO; -WARF2TAB57 PO
--- NOTE | 2022-11-02 08:43 | NUR ---
CHRISTIANNE MONTALVO 59 FROM A [facility] AT [address],PULSELESS WITH DNR PAPERS, PRONOUNCED BY DR MENDEZ
[2022-11-02 10:09] VITALS: BP 0/0
--- NOTE | 2022-11-02 11:38 | NUR ---
PRISCILLA EUGENE,GUY CALLED TO NOTIFY REGARDING PATIENT'S CONDITION,SPOKE WITH LAUREN
== END 2022-11-02 10:09 ==
LOC: ER 08:43
DX: I46.9 Cardiac arrest, cause unspecified (principal); J96.91 Respiratory failure, unspecified with hypoxia; I10 Essential (primary) hypertension; E11.9 Type 2 diabetes mellitus without complications; Z79.899 Other long term (current) drug therapy